=== PATIENT | male | born 1980 | race Caucasian/White ===

== ENCOUNTER 2019-09-20 01:45 | Emergency (ER) | payer BC ==
[~2019-09-20] VITALS: Ht 162.6 cm; Wt 62.0 kg
[2019-09-20] MEDS ORDERED: IBUPROFEN 600MG TABLET PO ONE (02:45)
[2019-09-20 03:18] VITALS: BP 119/75
== END 2019-09-20 03:19 | disposition home or self-care (01) ==
LOC: ER 01:45
DX: H65.03 Acute serous otitis media, bilateral (principal)
CPT/HCPCS: 87804; 99283

== ENCOUNTER 2019-10-02 22:20 | Emergency (ER) | payer BC | END 2019-10-03 00:27 | disposition left against medical advice (07) | LOC: ER 22:20 | DX: Z53.21 Procedure and treatment not carried out due to patient leaving prior to being seen by health care provider (principal) ==